=== PATIENT | female | born 1980 | race Caucasian/White ===

== ENCOUNTER 2024-12-29 11:43 | Emergency (ER) | payer BC, SELFPAY ==
--- OUTSIDE RECORDS SUMMARY | 2024-12-29 11:45 | XMS_ITS | Continuity of Care Document ---
Author Organization [facility] Address [address] [place] [address] Phone Care Team Providers Care Shells Inspector Name Role Phone Shirlene Hough Unavailable Unavailabl e Advance Directives Directive Yes / No Effective Date File Name No Information Encounters Encounter Description Practice Location Reason(s) For Visit Diagnoses Date Provider Providers Copied on Encounter [facility], [address], [place], [place], [id number] , tel: [phone] [facility] No Information 3 Tere Garber. [address] [place], [address], [place]. [phone] [facility], [address], [place], [place], [address] , tel: [phone] [facility] ADMINISTRTVE ENCOUNT NEC 8 Elodia Velazquez. [address] [place] [address], [id number], [place]. tel:[phone] [facility], [address], [place], [place], [address] , tel: [phone] Adolph 2ND DEGREE SUNBURNURIN TRACT INFECTION NOSDEPRESSIVE DISORDER NECROUTINE MEDICAL EXAMOTHR MIGRNE WO NTRC MGRNESOPHAGEAL REFLUX 8 Elodia Velazquez. [address], [place], [id number], [place]. tel:[phone] [facility], [address], [place], [place], [address] , tel: [phone] Ad[facility] ACUTE PHARYNGITISACUTE TONSILLITIS 0-200 5 Elodia Velazquez. [address], [place], [id number], [place]. tel:[phone] [facility], [address], [place], [place], [address] , tel: [phone] [facility] SPRAIN OF ANKLE NOS Shoaib- 6-200 1 Conversion Doctor. [address] [place] [address], [address], . [facility], [address], [place], [place], [address] , tel: [phone] Baxter NAUSEA WITH VOMITINGABDMNAL PAIN GENERALIZEDABDMNAL PAIN UNSPCF SITE 1-200 1 Conversion Doctor. [facility] [place], [address], . [facility], [address], [place], [place], [address] , tel: [phone] Baxter CONTUSION PERIOCULAR 9200 1 Conversion Doctor. [facility] [employer] [place], [address], . Family History Family Member Type Diagnosis Age At Onset No Information Payers Payer name Insurance type Covered alliance party ID Authoriza tion(s) No Information Social History Type Description Quantity Date Captured Comments Sex Female Smoking Status No Information Chief Complaint And Reason For Visit No Information Reason For Referral Reason For Referral No Information History Of Present Illness Encounter Date Complaint History Of Prese nt Illness No Information Functional Status Date Functional Assessmen t No Information Instructions Date Instruction Additional Infor mation No Information Assessments Type Assessment Date No Information Patient Care Teams Name Effective Dates (start - stop) Status Members No Information
[2024-12-29 11:47] VITALS: BP 119/79; PULSE 83; RESP 19; TEMP 36.8; O2SAT 100
--- NOTE | 2024-12-29 11:55 | ECG_ITS ---
Test Date: 2024-12-29 11:59:32 Measurements Intervals [place] Rate: 76 P: 14 [place]: 127 QRS: -8 QRSD: 100 T: -3 QT: 388 QTc: 438 Interpretive Statements SINUS RHYTHM VOLTAGE CRITERIA FOR LVH, CONSIDER NORMAL VARIANT NONSPECIFIC T-WAVE ABNORMALITY Electronically Signed On 12-30-2024 13:58:00 CDT by William Liang D.O
[2024-12-29 14:25] VITALS: BP 142/92; PULSE 100; RESP 15; O2SAT 98
--- OUTSIDE RECORDS SUMMARY | 2024-12-29 15:01 | XMS_ITS | Continuity of Care Document ---
Author Organization [facility] Address [address] [place] [address] Phone Care Team Providers Care Pastrycook'S Assistant Name Role Phone Shirlene Houhg Unavailable Unavailabl e Advance Directives Directive Yes / No Effective Date File Name No Information Encounters Encounter Description Practice Location Reason(s) For Visit Diagnoses Date Provider Providers Copied on Encounter [facility], [address], [place], [place], [address] , tel: [phone] [facility] No Information 3 Tere Garber. [address] [place], [address], [place]. tel:[phone] [facility], [address], [place], [place], [address] , tel: [phone] Adolph ADMINISTRTVE ENCOUNT NEC 8 Elodia Velazquez. [address], [place], [id number], [place]. tel:[phone] [facility], [address], [place], [place], [address] , tel: [phone] Ad[facility] DEPRESSIVE DISORDER NECROUTINE MEDICAL [id number] DEGREE SUNBURNESOPHAGEAL REFLUXURIN TRACT INFECTION NOSOTHR MIGRNE WO NTRC MGRN 8 Elodia Velazquez. [address], [place], [id number], [place]. tel:[phone] [facility], [address], [place], [place], [address] , tel: [phone] [facility] ACUTE PHARYNGITISACUTE TONSILLITIS 0-200 5 Elodia Velazquez. [address], [place], [id number], [place]. [phone] [facility], [address], [place], [place], [address] , tel: [phone] [facility] SPRAIN OF ANKLE NOS Shoaib- 6-200 1 Conversion Doctor. [address] [place] [address], [address], . [facility], [address], [place], [place], [address] , tel: [phone] [facility] ABDMNAL PAIN UNSPCF SITEABDMNAL PAIN GENERALIZEDNAUSEA WITH VOMITING Jan- 1-200 1 Conversion Doctor. [facility] [place], [address], . [facility], [address], [place], [place], [address] , tel: [phone] [facility] CONTUSION PERIOCULAR 9-200 1 Conversion Doctor. [address] [place] [address], [address], . Family History Family Member Type Diagnosis [...]
--- NOTE | 2024-12-29 15:04 | ED.NAVMDI ---
HPI - Nausea/Vomiting/Diarrhea General Chief complaint: Nausea/Vomiting/Diarrhea Stated complaint: many complaints Time Seen by Provider: 12/29/24 14:52 Source: patient Mode of arrival: EMS Limitations: no limitations History of Present Illness HPI Narrative: This is a 44-year-old female that presents to the emergency department for dizziness, nausea and vomiting today. Reports she feels ill as if she is getting the flu. Denies fevers, congestion, cough, sore throat, abdominal pain, diarrhea. Related Data Allergies Allergy/AdvReac Type Severity Reaction Status Date / Time No Known Allergies Allergy Mild Verified 12/29/24 11:53 Review of Systems Review of Systems: CONSTITUTIONAL: Denies fever EYES: Reports blurry vision CARDIOVASCULAR: Reports chest pain RESPIRATORY: Denies cough or dyspnea. GASTROINTESTINAL: Reports nausea, vomiting. Denies diarrhea. All systems reviewed & are unremarkable except as noted in HPI and below PMFSH Past Medical History Medical History (Updated 12/29/24 @ 15:49 by Toya Bustos PA-C) No active medical problems Exam Narrative: GENERAL: Well-appearing, well-nourished, and in no acute distress. HEAD: Normocephalic, atraumatic. EYES: PERRLA and EOMI. ENT: Nares clear, no rhinorrhea or epistaxis. Mucous membranes moist. Oropharynx without tonsillar hypertrophy exudate or other lesions. Bilateral TMs pearly hayden non-bulging NECK: Supple. No adenopathy or masses. CHEST: Clear to auscultation. No respiratory distress. No wheezes rales or rhonchi HEART: Regular rate and rhythm. No murmur heard. Normal peripheral pulses. ABDOMEN: Soft, nontender, nondistended, normal active bowel sounds. EXTREMITIES: Normal range of motion. No edema. Strength equal in bilateral upper and lower extremities (5/5) SKIN: Warm, dry, no rash. NEURO: No focal deficits. Alert and oriented x3. Cranial nerves 2-12 grossly intact. Normal [id number] PSYCH: Normal mood and affect Course Course Emergency Course: Patient eloped after being evaluated by myself and initial blood work and before any further management Vital Signs Vital signs: Vital Signs Temperature 98.2 F 12/29/24 11:47 Pulse Rate 83 12/29/24 11:47 Respiratory Rate 19 12/29/24 11:47 Blood Pressure 119/79 12/29/24 11:47 Pulse Oximetry 100 12/29/24 11:47 Oxygen Delivery Room Air 12/29/24 11:47 Temperature 98.2 F 12/29/24 11:47 Pulse Rate 100 12/29/24 14:25 Respiratory Rate 15 12/29/24 14:25 Blood Pressure 142/92 H 12/29/24 14:25 Pulse Oximetry 98 12/29/24 14:25 Oxygen Delivery Room Air 12/29/24 11:47 MDM - Nausea/Vomiting/Diarrhea Differential Diagnosis Differential diagnosis: Likely food poisoning, gastroenteritis, drug-induced nausea and vomiting, dehydration and other (Electrolyte derangement, vertigo, COVID, influenza) Lab Data Attestation: I reviewed the patient's lab results. 12/29/24 15:15 12/29/24 15:15 Labs: Lab Results 12/29/24 Range/Units 15:15 WBC 12.9 H (4.5-10.0) K/mm3 RBC 5.18 (4.2-5.4) M/mm3 Hgb 15.8 H (12.0-15.0) g/dL Hct 49.2 H (37.0-47.0) % MCV 95.0 (80-100) fl MCH 30.5 (26-34) pg MCHC 32.1 (32-36) g/dl RDW 13.1 (11.5-14.5) % Plt Count 247 (150-375) k/mm3 MPV 10.7 H (7.4-10.4) fl Immature Gran % (Auto) 0.4 (0-0.5) % Neut % (Auto) 91.6 H (45.5-73.1) % Lymph % (Auto) 3.9 L (18.3-44.2) % [place] % (Auto) 3.2 (2.6-8.5) % Eos % (Auto) 0.7 (0-4.4) % Baso % (Auto) 0.2 (0.2-1.2) % Lymph # (Auto) 0.50 L (0.9-3.2) K/mm3 [place] # (Auto) 0.4 (0.1-0.6) K/mm3 Eos # (Auto) 0.1 (0-0.3) K/mm3 Baso # (Auto) 0.0 (0.0-0.1) K/mm3 Abs Immat Gran (auto) 0.05 H (0.00-0.031) K/mm3 Absolute Neuts (auto) 11.9 H (1.3-6.7) K/mm3 Absolute Nucleated RBC 0.000 (0.0-0.012) K/mm3 Nucleated RBC % 0.0 (0.0-0.2) % PT 12.9 (11.1-14.7) Seconds INR 0.9 APTT 23.6 (22.3-36.8) Seconds Sodium 141 (137-145) mmol/L Potassium 3.8 (3.4-5.0) mmol/L Chloride 105 (98-107) mmol/L Carbon Dioxide 22 (22-30) mmol/L Anion Gap 14 H (4-12) mmol/L BUN 18 H (7-17) mg/dL Creatinine 0.68 L (0.7-1.0) mg/dL Estim Creat Clear Calc 90 ml/min Estimated GFR > 60 (59 - ) Glucose 156 H (65-110) mg/dL Calcium 9.5 (8.4-10.2) mg/dL Total Bilirubin 1.0 (0.2-1.3) mg/dL AST 23 (14-36) U/L ALT 32 (6-35) U/L Alkaline Phosphatase 117 (38-126) U/L Troponin I < 0.012 (0.000-0.034) ng/mL Total Protein 9.0 H (6.3-8.2) g/dL Albumin 5.0 (3.5-5.1) g/dL Ethyl Alcohol < 10 (<10) mg/dL Influenza A (RT-PCR) Pending Influenza B (RT-PCR) Pending SARS-CoV-2 RNA (RT-PCR) Pending ECG Data EKG #1: ECG completion date: 12/29/24 EKG Interpretation: normal rate, sinus rhythm, no ST changes and normal QT Critical Care Time Critical Care Time Critical Care Time: No Discharge Plan Discharge Clinical Impression: Dizziness Nausea & vomiting Qualifiers: Vomiting type: unspecified Qualified Code(s): R11.2 - Nausea with vomiting, unspecified Patient Disposition: Elopement After Seen by Prov Condition: Guarded Prognosis Patient Language: New Zealander Follow-up/Referrals: Frederick Guzman MD [Primary Care Provider] -
[2024-12-29 15:20] LABS: Basophils Percent Auto 0.2 % (0.2-1.2); Eosinophils Absolute Auto 0.1 K/mm3 (0-0.3); Eosinophils Percent Auto 0.7 % (0-4.4); Hematocrit 49.2 % (37.0-47.0); Hemoglobin 15.8 g/dL (12.0-15.0); Immature Granulocyte Absolute 0.05 K/mm3 (0.00-0.031); Immature Granulocyte Percent A 0.4 % (0-0.5); Lymphocytes Percent Auto 3.9 % (18.3-44.2); Mean Corpuscular HGB Conc 32.1 g/dl (32-36); Mean Corpuscular Hemoglobin 30.5 pg (26-34); Mean Platelet Volume 10.7 fl (7.4-10.4); Monocytes Absolute Auto 0.4 K/mm3 (0.1-0.6); Monocytes Percent Auto 3.2 % (2.6-8.5); Neutrophils Absolute Auto 11.9 K/mm3 (1.3-6.7); Neutrophils Percent Auto 91.6 % (45.5-73.1); Platelet Count Result 247 k/mm3 (150-375); Red Blood Count 5.18 M/mm3 (4.2-5.4); Red Cell Distribution Width 13.1 % (11.5-14.5); White Blood Count 12.9 K/mm3 (4.5-10.0)
--- NOTE | 2024-12-29 15:20 | PC.NURSE ---
Pt. refusing CT at this time.
[2024-12-29 15:30] LABS: Alanine Aminotransferase 32 U/L (6-35); Alkaline Phosphatase 117 U/L (38-126); Anion Gap 14 mmol/L (4-12); Aspartate Amino Transferase 23 U/L (14-36); Blood Urea Nitrogen 18 mg/dL (7-17); Calcium 9.5 mg/dL (8.4-10.2); Carbon Dioxide 22 mmol/L (22-30); Chloride 105 mmol/L (98-107); Estimated CRCL calculation 90 ml/min; Estimated Glomerular Filt Rate > 60; Glucose 156 mg/dL (65-110); Potassium 3.8 mmol/L (3.4-5.0); Sodium 141 mmol/L (137-145)
[2024-12-29 15:32] LABS: INR 0.9; Prothrombin Time 12.9 Seconds (11.1-14.7)
[2024-12-29 15:33] LABS: Partial Thromboplastin Time 23.6 Seconds (22.3-36.8)
[2024-12-29 15:37] LABS: Ethanol < 10 mg/dL (<10)
[2024-12-29 15:41] LABS: Troponin I < 0.012 ng/mL (0.000-0.034)
--- NOTE | 2024-12-29 15:51 | PC.NURSE ---
pt asked for iv to be removed, pt left right after, no longer wanted to be here.
[2024-12-29 15:56] LABS: Influenza A QL RT-PCR Negative (Negative); Influenza B QL RT-PCR Negative (Negative); SARS-CoV-2 RNA PCR Negative (Negative)
== END 2024-12-29 15:53 | disposition left against medical advice (07) ==
PROVIDERS: Emergency Provider Physician Assistant; PCP Obstetrics & Gynecology
DX: R11.2 Nausea with vomiting, unspecified (principal); R42 Dizziness and giddiness; Z20.822 Contact with and (suspected) exposure to COVID-19; R94.31 Abnormal electrocardiogram [ECG] [EKG]
CPT/HCPCS: 36415; 80053; 82077; 84484; 85025; 85610; 85730; 87636; 93005; 96361; 96374; 96375; 99284